=== PATIENT | male | born 1935 | race Hispanic/Latino ===

== ENCOUNTER 2017-01-07 11:53 | Outpatient (CLI) | payer MEDICARE ==
--- NOTE | 2017-01-07 13:05 | XRay Report ---
Chest 2 views: History: Wheezing. Findings: Cardiomegaly with mild emphysema. Pleural thickening bilaterally. No acute consolidation. Impression: Cardiomegaly. No acute lung changes.
== END 2017-01-07 11:54 | disposition home or self-care (01) ==
LOC: SPVIMAG 11:53
PROVIDERS: ATTEND Internal Medicine
DX: I51.7 Cardiomegaly (principal); J43.9 Emphysema, unspecified
CPT/HCPCS: 71020